=== PATIENT | female | born 1960 | race Caucasian/White ===

== ENCOUNTER 2024-03-17 15:38 | Emergency (ER) | payer OTHER ==
[2024-03-17 15:55] VITALS: BP 140/64; O2SAT 96
--- NOTE | 2024-03-17 18:16 | ED Physician Documentation ---
PD HPI SKIN - Stated complaint Stated Complaint: R ELBOW RED/PX - Chief complaint Chief Complaint: Wound - Additional information Additional information: 63-year-old female with no history of immunocompromise presents emergency department for right elbow redness. Patient says that she think she got a spider bite about a week ago the redness and swelling was significantly worse and has improved significantly. Given that there is still some mild erythema to her elbow with some tenderness with palpation she was worried that there is a possible fluid collection or other complication which is what she presents to the emergency department for. No shortness of breath no fevers or chills. PD PAST MEDICAL HISTORY - Past Medical History Past Medical History: Yes Endocrine/Autoimmune: HyPOthyroidism - Past Surgical History Past Surgical History: Yes General: Appendectomy /[facility]TER: Hysterectomy HEENT: Tonsil/Adenoidectomy - Allergies Allergies/Adverse Reactions: Allergies Allergy/AdvReac Type Severity Reaction Status Date / Time No Known Drug Allergies Allergy Verified 03/17/24 15:43 - Social History Does the pt smoke?: No Smoking Status: Never smoker Does the pt drink ETOH?: Yes Does the pt have substance abuse?: No Substance Use and Type: Marijuana - Immunizations Immunizations are current?: Yes - POLST Patient has POLST: No PD ED PE NORMAL - Vitals Vital signs reviewed: Yes - General General: Alert and oriented X 3, No acute distress, Well developed/nourished - Derm Derm: Other (Very subtle mild localized erythema to bend of elbow no induration no fluctuance no fluid collection no purulent drainage or open wounds) - Extremities Extremities: No deformity, No tenderness to palpate, Normal ROM s pain, No edema, No calf tenderness / cord Results - Vitals Vitals: Vital Signs - 24 hr 03/17/24 15:43 Temperature 36.5 C Heart Rate 75 Respiratory 16 Rate Blood Pressure 140/64 H O2 Saturation 96 Oxygen O2 Source Room air PD Medical Decision Making - ED course ED course: 63-year-old female presents emergency department for redness to right elbow that has significantly improved. When I evaluate the skin there is no fluctuance no fluid collection that needs to be incised and drained the erythema is very mild it is tender to the touch but patient does report that pain improves with Tylenol and ice. I informed the patient that there is no obvious signs of infection that this can take a couple weeks for it to fully heal and recover and to come back in if the redness gets worse if she starts to develop any fevers or chills or has any pain with bending the elbow she has full range motion of her right elbow without any limitations. She understands relieved she is safe for discharge at this time return precautions given and told to follow-up with primary care provider as needed. Departure - Departure Disposition: 01 Home, Self Care Clinical Impression: Spider bite Instructions: ED Erythema Comments: Thank you for trusting us with your care like we Discussed given that your spider bite has actually improved there is nothing that we need to do for this. Continue to apply ice 20 minutes at a time 1 hour off and take Tylenol ibuprofen for pain and discomfort. He should start develop any fevers or chills or if the redness gets any worse feel free to come back to the emergency department for further evaluation. Forms: PCP List Discharge Date/Time: 03/17/24 18:29
== END 2024-03-17 18:29 | disposition home or self-care (01) ==
LOC: ED 15:38
DX: T63.301A Toxic effect of unspecified spider venom, accidental (unintentional), initial encounter (principal); L53.0 Toxic erythema
CPT/HCPCS: 99281; 99283